=== PATIENT | male | born 1995 | race Caucasian/White ===

== ENCOUNTER 2018-06-08 14:15 | Emergency (ER) | payer OTHER ==
[2018-06-08 14:56] VITALS: BP 128/75
--- NOTE | 2018-06-08 15:14 | EDPHY ---
H & P Time Seen by Provider: 06/08/18 15:06 HPI/ROS: Chief complaint. Vomiting blood HPI. 23-year-old male presents emergency department with vomiting blood and blood in stool this morning. He was out drinking with friends last night. During the night he had 3 episodes of emesis with bright red blood. This morning had a bowel movement that was reddish. He has no abdominal pain. He has a history of GERD. He also has a history of eosinophilic esophagitis. He complains of an achiness retrosternal. Does not radiate to his back. No shortness of breath. No increased pain with swallowing ROS 10 systems were reviewed and negative with the exception of the elements mentioned in the history of present illness Past Medical/Surgical History: GERD, eosinophilic esophagitis Social History: Single, nonsmoker, no alcohol Smoking Status: Never smoked Physical Exam: General Appearance: Alert well-developed male mild distress vital signs are stay Eyes: Pupils equal and round no pallor or injection. ENT, Mouth: Mucous membranes are moist. Respiratory: There are no retractions, lungs are clear to auscultation. Cardiovascular: Regular rate and rhythm. Gastrointestinal: Abdomen is soft and nontender, no masses, bowel sounds normal. Rectal exam shows brown stool Neurological: Awake and alert, sensory and motor exams grossly normal. Skin: Warm and dry, no rashes. Musculoskeletal: Neck is supple nontender. Extremities symmetrical, full range of motion. Psychiatric: Patient is oriented X 3, there is no agitation. Constitutional: Initial Vital Signs Temperature (C) 37 C 06/08/18 14:53 Heart Rate 76 06/08/18 14:53 Respiratory Rate 16 06/08/18 14:53 Blood Pressure 128/75 H 06/08/18 14:53 O2 Sat (%) 95 06/08/18 14:53 O2 Delivery Mode Room Air Allergies/Adverse Reactions: clindamycin Allergy (Verified 06/08/18 14:56) Home Medications: Medication Instructions Recorded Esomeprazole Mag Trihydrate 40 mg PO DAILY #10 06/08/18 [Nexium] Ondansetron Odt [Zofran Odt] 4 mg PO Q4PRN PRN #4 tab 06/08/18 Medical Decision Making - Diagnostics Imaging Results: Imaging Impressions Chest X-Ray 06/08/18 15:30 Impression: Negative portable chest. One-view chest x-ray interpreted by me is normal Procedures: Old records are reviewed. There were none for review IV normal saline. Protonix IV ED Course/Re-evaluation: On re-evaluation patient remained stable. No further vomiting or diarrhea. No abdominal pain. Patient and I discussed laboratory evaluation, treatment plan including criteria for return importance of follow-up and further evaluation. He expresses understanding and agreement Differential Diagnosis: Hematemesis after drinking alcohol. He has some retrosternal chest discomfort and has declined a GI cocktail. He has a history of eosinophilic esophagitis as a child. I considered gastritis as well as peptic ulcer disease though more likely gastritis as the symptoms came on fairly suddenly after drinking alcohol last night. No evidence significant blood loss or hemodynamic instability - Data Points Laboratory Results: Laboratory Results 06/08/18 15:15 06/08/18 15:15 06/08/18 06/08/18 06/08/18 15:15 15:15 15:15 WBC 7.65 10^3/uL 10^3/uL (3.80-9.50) RBC 5.40 10^6/uL 10^6/uL (4.40-6.38) Hgb 17.6 g/dL H g/dL (13.7-17.5) Hct 49.6 % % (40.0-51.0) MCV 91.9 fL fL (81.5-99.8) MCH 32.6 pg pg (27.9-34.1) MCHC 35.5 g/dL g/dL (32.4-36.7) RDW 11.9 % % (11.5-15.2) Plt Count 288 10^3/uL 10^3/uL (150-400) MPV 9.3 fL fL (8.7-11.7) Neut % (Auto) 59.7 % % (39.3-74.2) Lymph % (Auto) 32.3 % % (15.0-45.0) Sutter % (Auto) 5.0 % % (4.5-13.0) Eos % (Auto) 2.1 % % (0.6-7.6) Baso % (Auto) 0.5 % % (0.3-1.7) Nucleat RBC Rel Count 0.0 % % (0.0-0.2) Absolute Neuts (auto) 4.57 10^3/uL 10^3/uL (1.70-6.50) Absolute Lymphs (auto) 2.47 10^3/uL 10^3/uL (1.00-3.00) Absolute Monos (auto) 0.38 10^3/uL 10^3/uL (0.30-0.80) Absolute Eos (auto) 0.16 10^3/uL 10^3/uL (0.03-0.40) Absolute Basos (auto) 0.04 10^3/uL 10^3/uL (0.02-0.10) Absolute Nucleated RBC 0.00 10^3/uL 10^3/uL (0-0.01) Immature Gran % 0.4 % % (0.0-1.1) Immature Gran # 0.03 10^3/uL 10^3/uL (0.00-0.10) PT 13.8 SEC SEC (12.0-15.0) INR 1.04 (0.83-1.16) APTT 30.1 SEC SEC (23.0-38.0) Sodium 139 mEq/L mEq/L (135-145) Potassium 4.1 mEq/L mEq/L (3.5-5.2) Chloride 105 mEq/L mEq/L (97-110) Carbon Dioxide 26 mEq/l mEq/l (22-31) Anion Gap 8 mEq/L mEq/L (6-14) BUN 10 mg/dL mg/dL (7-23) Creatinine 0.9 mg/dL mg/dL (0.7-1.3) Estimated GFR > 60 Glucose 89 mg/dL mg/dL (70-100) Calcium 9.8 mg/dL mg/dL (8.5-10.4) Lipase 54 IU/L IU/L (23-300) Medications Given: Discontinued Medications Al Hydroxide/Mg Hydroxide (Maalox Susp) 30 ml PO ONCE ONE Stop: 06/08/18 15:31 Last Admin: 06/08/18 15:40 Dose: 30 ml Sodium Chloride (Ns) 1,000 mls @ 0 mls/hr IV EDNOW ONE; Wide Open PRN Reason: Protocol Stop: 06/08/18 15:27 Last Admin: 06/08/18 15:40 Dose: 1,000 mls Lidocaine (Lidocaine 2% Viscous) 15 ml PO ONCE ONE Stop: 06/08/18 15:31 Last Admin: 06/08/18 15:40 Dose: 15 ml Pantoprazole Sodium (Protonix) 80 mg IVP EDNOW ONE Stop: 06/08/18 15:27 Last Admin: 06/08/18 15:40 Dose: 80 mg Departure - Departure Disposition: Home, Routine, Self-Care Clinical Impression: Hematemesis with nausea Condition: Good Instructions: Hematemesis (ED) Additional Instructions: Frequent, small sips fluids. Gradual diet advancement Nexium to help heal your stomach Zofran as needed for nausea and vomiting Caution with Advil, aspirin, alcohol Return for worsening pain or vomiting blood Re-evaluation in 2 days for continuing symptoms. Follow-up with sluice tender for further evaluation Referrals: NONE *PRIMARY CARE P,. [Primary Care Provider] - As per Instructions Alexandra Lynch MD [Medical Doctor] - 2-3 days, if not improved Prescriptions: Esomeprazole Mag Trihydrate [Nexium] 40 mg PO DAILY #10 cap. Ondansetron Odt [Zofran Odt] 4 mg PO Q4PRN PRN #4 tab PRN Reason: Nausea/Vomiting, Use 1st
[2018-06-08] MEDS ORDERED: PANTOPRAZOLE SODIUM 40 MG VIAL IVP ONE (15:26)
[2018-06-08] MEDS ORDERED: NS 1,000 ML IV ONE (15:26)
[2018-06-08] MEDS ORDERED: LIDOCAINE 2% VISCOUS 15 ML UDCUP PO ONE (15:30)
[2018-06-08] MEDS ORDERED: MAG HYDROX/AL HYDROX/SIMETH 30 ML UDCUP PO ONE (15:30)
[2018-06-08 15:36] LABS: PLATELET COUNT 288 10^3/uL (150-400)
[2018-06-08 15:48] LABS: INR 1.04 (0.83-1.16); PROTIME(PATIENT) 13.8 SEC (12.0-15.0)
== END 2018-06-08 17:14 | disposition home or self-care (01) ==
DX: K92.0 Hematemesis (principal); K21.9 Gastro-esophageal reflux disease without esophagitis
CPT/HCPCS: 96374